=== PATIENT | female | born 1950 | race Caucasian/White ===

== ENCOUNTER 2017-07-29 04:52 | Inpatient (IN) ==
[2017-07-29] MEDS ORDERED: PANTOPRAZOLE 40 MG VIAL IV STA (05:20)
--- NOTE | 2017-07-29 05:24 | Emergency Department Note ---
Arrival - Arrival Chief Complaint: Chest Pain Stated Complaint: chest pains sob ED Nursing Triage Note: TO ER PER WC WITH C/O CHEST PAIN AND TIGHTNESS THAT BEGAN AT 0200 THIS AM. STATES PAIN IS RADIATING TO BACK AND UNDERNEATH LEFT ARM. Mode of Arrival: Wheelchair Time Seen by Provider: 07/29/17 05:19 - History of Present Illness HPI Narrative: This is a 67-year-old white female with a history of acid reflux disease, and benign tremor who was awoken at 2 AM with chest pressure, nausea, diaphoresis. She had a similar presentation in 2012 where her troponin was elevated and where she underwent a cardiac catheterization which showed no stent of the lesions. The initial EKG does not show ST segment elevation. She has ongoing chest discomfort with nausea in the emergency department. Allergies/Adverse Reactions: Allergies Allergy/AdvReac Type Severity Reaction Status Date / Time No Known Allergies Allergy Unverified 07/29/17 05:03 Review of System - Review of System Constitutional: Absent: fever, night sweats Eyes: Absent: redness, vision change Head/Ears/Nose/Throat: Absent: epistaxis Respiratory: Absent: respiratory distress, wheezing Cardiovascular: Absent: dyspnea on exertion, orthopnea Gastrointestinal: Absent: diarrhea, constipation, hematemesis Genitourinary female: Absent: dysuria, frequency, urgency Musculoskeletal: Absent: joint swelling, lower back pain, leg pain Skin: Absent: change in color, pruritus Neurological: Absent: numbness, confusion Psychiatric: Absent: anxiety, depression Endocrine: Absent: heat intolerance, polydipsia, polyuria Hematological/Lymphatic: Absent: easy bruising, lymphadenopathy Allergic/Immunologic: Absent: urticaria, itchy eyes Medical,Surgical,& Family Hx - Medical History Musculoskeletal: History of: Musculoskeletal Problems (BENIGN TREMOR) - Surgical History Cardiac Surgeries: Sugical HX of: Cardiac Catheterization - Social History Smoking Status: Never smoker Frequency of Alcohol Use: None Type of Drug Use: None Exam Vital Signs: Vital Signs Temperature 97.1 F L 07/29/17 04:55 Pulse Rate 51 L 07/29/17 04:55 Respiratory Rate 20 07/29/17 04:55 Blood Pressure 142/78 07/29/17 04:55 O2 Sat by Pulse Oximetry 99 07/29/17 04:55 - General General appearance: alert, in no apparent distress - Eye Eye exam: Present: PERRL, EOMI - ENT ENT exam: Present: normal exam, normal oropharynx - Neck Neck exam: Present: normal inspection, full ROM - Chest Chest inspection: Present: normal inspection - Respiratory Respiratory exam: Present: normal lung sounds bilaterally - Cardiovascular Cardiovascular exam: Present: regular rate, normal rhythm - Abdominal Exam Abdominal exam: Present: soft, normal bowel sounds - Extremities Exam Extremities exam: Present: normal inspection, full ROM - Back Exam Back exam: Present: normal inspection, full ROM - Neurological Exam Neurological exam: Present: alert, oriented X3 - Psychiatric Psychiatric exam: Present: normal affect, normal mood - Skin Skin exam: Present: warm, dry
[2017-07-29] MEDS ORDERED: PANTOPRAZOLE 40 MG VIAL IV ONE (05:27)
[2017-07-29 05:30] LABS: Basophils # 0.1 10*3/uL (0.0-0.2); Basophils % 0.6 % (0.0-0.8); Eosinophils # 0.2 10*3/uL (0.0-0.87); Eosinophils % 2.6 % (0.00-10.9); Hematocrit 37.3 VOL% (35.7-47.0); Hemoglobin 12.9 GM/DL (12.0-16.0); Immature Granulocytes % 0.1 %; Immature Granulocytes Absolute 0.01 #; Lymphocytes # 2.8 10*3/uL (1.4-4.0); Mean Corpuscular HGB Conc 34.6 GM/DL (32-36); Mean Corpuscular Hemoglobin 30 PG (27-34); Mean Corpuscular Volume 87.1 FL (87-102); Mean Platelet Volume 9.2 FL (9.6-12.0); Monocytes # 0.5 10*3/uL (0.11-0.8); Monocytes % 6.5 % (1.7-12.7); Neutrophils # 4.6 10*3/uL (1.4-7.4); Neutrophils % 56.2 % (38.7-73.9); Platelet Count 305 T/CUMM (130-400); Red Blood Count 4.28 MC/CUMM (3.8-5.5); Red Cell Distribution Width 13.1 % (9.3-17.3); White Blood Count 8.2 T/CUMM (4-12)
--- NOTE | 2017-07-29 05:32 | EKG Report ---
Stationary ECG Study 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
[2017-07-29 05:48] LABS: Albumin 3.9 G/DL (3.4-5.0); Bilirubin,Total 0.7 MG/DL (0.2-1.0); Calcium 10.3 MG/DL (8.5-10.1); Osmolality,Calculated 275.7 MOS/KG (273-304); Potassium 3.8 MMOL/L (3.5-5.1); Total Protein 6.8 G/DL (6.4-8.3)
[2017-07-29] MEDS ORDERED: ONDANSETRON 4 MG/2 ML VIAL IV STA (05:50)
[2017-07-29] MEDS ORDERED: ONDANSETRON 4 MG/2 ML VIAL ONE (05:50)
[2017-07-29 05:56] LABS: Troponin I Only 5.74 NG/ML (0.00-0.045)
[2017-07-29] MEDS ORDERED: MORPHINE 2 MG/1 ML SYRINGE IV STA (06:12)
[2017-07-29] MEDS ORDERED: NITROGLYCERIN 2% OINT 1 INCH/GM PACK TOP STA (06:12)
[2017-07-29] MEDS ORDERED: ENOXAPARIN 60 MG/0.6 ML SYRINGE SUBCUT STA (06:12)
[2017-07-29] MEDS ORDERED: ENOXAPARIN 60 MG/0.6 ML SYRINGE ONE (06:22)
[2017-07-29] MEDS ORDERED: NITROGLYCERIN 2% OINT 1 INCH/GM PACK TOP ONE (06:23)
[2017-07-29] MEDS ORDERED: MORPHINE 2 MG/1 ML SYRINGE ONE (06:23)
[2017-07-29] MEDS ORDERED: ONDANSETRON 4 MG/2 ML VIAL IV PRN (06:47)
[2017-07-29] MEDS ORDERED: MORPHINE 2 MG/1 ML SYRINGE IV PRN (06:47)
[2017-07-29] MEDS: SODIUM CHLORIDE 0.9% 1,000 ML IV SCH ×3 (08:24→23:45)
--- NOTE | 2017-07-29 09:35 | EKG Report ---
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
--- NOTE | 2017-07-29 09:36 | EKG Report ---
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
[2017-07-29 09:43] LABS: Risk Ratio 5.1
[2017-07-29] MEDS ORDERED: TICAGRELOR 90 MG TABLET PO ONE (10:42)
[2017-07-29 11:08] LABS: Risk Ratio 5.15; VLDL CHOLESTEROL 31.2 MG/DL
--- NOTE | 2017-07-29 11:51 | EKG Report ---
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
[2017-07-29] MEDS: ESCITALOPRAM 10 MG TABLET PO SCH (12:00)
[2017-07-29] MEDS: CARBIDOPA/LEVODOPA 25-100 MG TABLET PO SCH (12:00)
--- NOTE | 2017-07-29 12:23 | XRay Report ---
History: Chest pain Date: 07/29/2017 Study: Chest x-ray AP portable Comparison exam: October 15, 2011 The cardiac silhouette is upper normal in size. There is a moderate-sized hiatal hernia. The mediastinal contours are otherwise unremarkable. The pulmonary vasculature is not engorged. The lungs and pleural spaces are generally clear. Osseous structures are unchanged. Impression: No acute process compared to the previous study PROCEDURE INTERPRETED AT [facility] DEPARTMENT OF RADIOLOGY Final Report Signed by: Dr. Lori Guidry
--- NOTE | 2017-07-29 14:18 | Cardiology History & Physical ---
Assessment and Plan (1) Non-STEMI (non-ST elevated myocardial infarction) Status: Acute Current Visit: Yes (2) Hyperlipidemia Status: Chronic Current Visit: Yes History of Present Illness Chief complaint: Chest pain History of present illness: Job Coaching: She requests to follow-up with me The patient is a 67-year-old white female with a history of myocardial infarction approximately 5 years ago. Risk factors for coronary artery disease include hyperlipidemia and a family history. She tells me her blood work was abnormal but at that time cardiac catheterization was performed with Dr. Altamirano which did not reveal any obstructive coronary disease. She has enjoyed reasonably good health with a chronic condition of tremors since adolescence. This is usually treated with Inderal. She presented to the emergency room with chest discomfort. Yesterday was emotionally taxing for the patient as her best friend's son unexpectedly at the age of 43 while running. She had chest discomfort on and off yesterday with this distress. However, she awoke at approximately 3 AM with a severe tightness in her chest that radiated up into her neck or jaw and down into her left arm as well as her back. It was associated with diaphoresis, presyncope, nausea and vomiting. She came to the emergency room and her symptoms were relieved with nitroglycerin. Her cardiac biomarkers have been markedly positive. She is currently pain-free. She denies any antecedent change in her functional status, dyspnea on exertion, paroxysmal nocturnal dyspnea, orthopnea , lower extremity edema, presyncope. She does experience chronic reflux symptoms, but these symptoms are distinctly different from what she experienced today and are worse when she is in the recumbent position. She has no other acute complaints. Impression and plan: 1. Non-ST elevation myocardial infarction-she is currently asymptomatic. I suspect she may have Prinzmetal pathology but cannot confirm this until cardiac catheterization. She is being treated acutely with aspirin, Lovenox, Plavix, Lipitor. Her blood pressure will not allow us to continue beta-blockade at this time. I have discussed the role, risks and benefits of cardiac catheterization with the patient and she is agreeable to proceeding. We will schedule this for the morning unless she becomes more unstable. We will also get an echocardiogram for further risk stratification. 2. Hyperlipidemia-we will initiate and continue the Lipitor. She was not taking this consistently as an outpatient Home Medications Medication Instructions Recorded Confirmed Type Atorvastatin [Lipitor] 1 tablet PO DAILY 07/29/17 07/29/17 History Carbidopa/Levodopa 25-100 [Sinemet 1 tablet PO DAILY 07/29/17 07/29/17 History 25-100] Escitalopram [Lexapro] 1 tablet PO DAILY 07/29/17 07/29/17 History Lansoprazole [Prevacid] 30 mg PO DAILY 07/29/17 07/29/17 History Propranolol HCl [Propranolol ER 1 capsule PO DAILY 07/29/17 07/29/17 History Cap] Allergies Allergy/AdvReac Type Severity Reaction Status Date / Time No Known Allergies Allergy Unverified 07/29/17 05:03 12 point system: reviewed and no additional remarkable complaints except as stated Medical,Surgical,& Family Hx - Medical History Endocrine: History of: Dyslipidemia Musculoskeletal: No history of: Musculoskeletal Problems - Surgical History Cardiac Surgeries: Sugical HX of: Cardiac Catheterization Neurologic Surgeries: Patient denies: Neurologic Surgery Reproductive Surgeries: Surgical HX of;: Gynecologic Surgery (ablation) - Social History Smoking Status: Never smoker Frequency of Alcohol Use: None Type of Drug Use: None Functional capacity: independent ambulation Cardiology Physical Exam - Constitutional Vitals: Vital Signs Temp Pulse Resp BP Pulse Ox 97.8 F 65 21 113/62 95 07/29/17 11:00 07/29/17 13:00 07/29/17 13:00 07/29/17 13:00 07/29/17 13:00 Intake and Output 07/28/17 07/29/17 07/29/17 23:59 07:59 15:59 Output Total 0 / 0 Balance 0 / 0 Output: Urine 0 / 0 Other: Voiding Method Toilet # Voids 0 Weight 56.699 kg 59 kg Patient Weight 07/29/17 23:59 Weight 59 kg Exam: General appearance: normal weight, no acute distress - Head Head exam: Present: normal inspection, normocephalic, atraumatic. Absent: hematoma, laceration - Eye Eye exam: Present: EOMI. Absent: conjunctival injection, nystagmus, periorbital swelling, scleral icterus, laceration to eyelids Pupils: Present: PERRL. Absent: constricted, dilated, fixed, irregular, unequal - ENT ENT exam: Present: normal exam, normal external ear exam - Neck Neck exam: Present: normal inspection. Absent: lymphadenopathy, meningismus, tenderness, thyromegaly - Respiratory Respiratory exam: Present: clear to auscultation bilaterally. Absent: accessory muscle use, chest wall tenderness - Cardiovascular Cardiovascular exam: Present: regular rate and rhythm. Absent: carotid bruit, gallop, JVD, rubs - GI/Abdominal GI/Abdominal exam: Present: normal bowel sounds, soft. Absent: distended, firm , guarding, hernia, mass, tenderness, rebound. - Extremities Exam Extremities exam: Present: normal inspection, normal capillary refill. Absent: calf tenderness, edema - Back Exam Back exam: Present: normal inspection. Absent: muscle spasm, vertebral tenderness - Neurological Exam Neurological exam: Present: alert, oriented X3, grossly intact with resting jaw and head tremor, intention limb tremor - Psychiatric Psychiatric exam: Present: normal affect, normal mood - Skin Skin exam: Present: normal color, warm, dry, intact. Absent: cyanosis, diaphoretic, rash, urticaria Result/EKG - Labs CBC & BMP: 07/29/17 05:17 07/29/17 05:17 Lab Results: I have reviewed the past 24 hour labs Labs: Laboratory Results - last 24 hr 07/29/17 07/29/17 07/29/17 05:17 05:17 08:38 WBC 8.2 RBC 4.28 Hgb 12.9 Hct 37.3 MCV 87.1 MCH 30 MCHC 34.6 RDW 13.1 Plt Count 305 MPV 9.2 L Neut % (Auto) 56.2 Lymph % (Auto) 34.0 Chambers % (Auto) 6.5 Eos % (Auto) 2.6 Baso % (Auto) 0.6 Neut # (Auto) 4.6 Lymph # (Auto) 2.8 Chambers # (Auto) 0.5 Eos # (Auto) 0.2 Baso # (Auto) 0.1 Immature Gran % 0.1 Nucleated RBC % 0.0 Immature Gran # 0.01 Nucleated RBCs # 0.00 Immature Plt Fraction 0.0 Sodium 138 Potassium 3.8 Chloride 104 Carbon Dioxide 24 Anion Gap 13.8 BUN 12 Creatinine 0.90 GFR Calculation 60 BUN/Creatinine Ratio 13.00 Glucose 120 H Calculated Osmolality 275.7 Calcium 10.3 H Total Bilirubin 0.70 AST 40 H ALT 15 Alkaline Phosphatase 104 Troponin I 5.740 H Total Protein 6.8 Albumin 3.9 Globulin 2.9 Albumin/Globulin Ratio 1.3 Triglycerides 125 Cholesterol 260 H LDL Cholesterol 185.0 VLDL Cholesterol 25.0 HDL Cholesterol 51 Heart Disease Risk Ratio 5.10 Lipase 153.0 07/29/17 07/29/17 07/29/17 08:38 11:00 Unknown WBC RBC Hgb Hct MCV MCH MCHC RDW Plt Count MPV Neut % (Auto) Lymph % (Auto) Chambers % (Auto) Eos % (Auto) Baso % (Auto) Neut # (Auto) Lymph # (Auto) Chambers # (Auto) Eos # (Auto) Baso # (Auto) Immature Gran % Nucleated RBC % Immature Gran # Nucleated RBCs # Immature Plt Fraction Sodium Potassium Chloride Carbon Dioxide Anion Gap BUN Creatinine GFR Calculation BUN/Creatinine Ratio Glucose Calculated Osmolality Calcium Total Bilirubin AST ALT Alkaline Phosphatase Troponin I 13.500 H D 16.900 H D Total Protein Albumin Globulin Albumin/Globulin Ratio Triglycerides 156 H Cholesterol 273 H LDL Cholesterol 199.0 VLDL Cholesterol 31.2 HDL Cholesterol 53 Heart Disease Risk Ratio 5.15 Lipase - Diagnostic Findings Procedure: Chest x-ray: report reviewed by me - EKG EKG results: interpreted by me, sinus rhythm, no acute changes
[2017-07-29] MEDS ORDERED: POTASSIUM CHLORIDE RIDER 10 MEQ in PREMIX 1 EACH IV PRN (14:20)
[2017-07-29] MEDS ORDERED: MAGNESIUM SULF RIDER 2 GM in PREMIX 1 EACH IV PRN (14:20)
[2017-07-29] MEDS: PANTOPRAZOLE 40 MG TABLET PO SCH (15:06)
[2017-07-29] MEDS: NITROGLYCERIN 2% OINT 1 INCH/GM PACK TOP SCH (17:45)
[2017-07-29] MEDS ORDERED: ENOXAPARIN 60 MG/0.6 ML SYRINGE SUBCUT ONE (18:30)
--- NOTE | 2017-07-29 20:27 | ECHO Report ---
Deborah Ken Exam Date: 07/29/2017 11:05 Referring Physician: Technologist: Paz Nesbitt RDCS Age: 67 Ht (in): 62 Wt (lb): 130 Gender: F Exam Location: [facility] Echo Indications: Chest pain, unspecified, Non-ST elevation (NSTEMI) myocardial infarction BP: 120 / 65 HR: 55 Rhythm: Sinus Technical Quality: IMPRESSIONS Normal left ventricular wall thickness. Left ventricular ejection fraction is estimated at 60 %. The right atrium is mildly enlarged. Moderately enlarged left atrium in apical view. Mild mitral valve regurgitation. Mild tricuspid valve regurgitation. Tricuspid regurgitation velocities suggest a PAP of 43 mmHg. Trace pulmonary valve regurgitation. MEASUREMENTS (Male / Female) Normal Values 2D ECHO LV Diastolic Diameter PLAX 5.1 cm 4.2 - 5.9 / 3.9 - 5.3 cm LV Systolic Diameter PLAX 3.6 cm LV Fractional Shortening PLAX 30.3 % IVS Diastolic Thickness 0.8 cm 0.6 - 1.0 / 0.6 - 0.9 cm LVPW Diastolic Thickness 0.9 cm 0.6 - 1.0 / 0.6 - 0.9 cm RV Internal Dim ED PLAX 2.7 cm Aortic Root Diameter 2.7 cm LA Systolic Diameter LX 3.5 cm 3.0 - 4.0 / 2.7 - 3.8 cm DOPPLER TR Peak Velocity 288.0 cm/s TR Peak Gradient 33.2 mmHg FINDINGS Left Ventricle Normal left ventricular cavity size. Normal left ventricular wall thickness. Left ventricular ejection fraction is estimated at 60 %. Right Ventricle The right ventricle is normal in size and function. Right Atrium The right atrium is mildly enlarged. Left Atrium Modderately enlarged left atrium in apical view. Mitral Valve Morphologically normal mitral valve. Mild mitral valve regurgitation. Aortic Valve Morphologically normal aortic valve without significant sclerosis or stenosis. There is no aortic regurgitation. Tricuspid Valve Morphologically normal tricuspid valve. Mild tricuspid valve regurgitation. Tricuspid regurgitation velocities suggest a PAP of 43 mmHg. Pulmonic Valve Morphologically normal pulmonic valve. Trace pulmonary valve regurgitation. Pericardium Normal pericardium without effusion. Aorta Normal ascending aorta dimension. Kenn Kim MD (Electronically Signed) Final Date: 29 July 2017 20:26
[2017-07-29] MEDS: TICAGRELOR 90 MG TABLET PO SCH (20:43)
[2017-07-30] MEDS: NITROGLYCERIN 2% OINT 1 INCH/GM PACK TOP SCH ×2 (02:28→06:22)
[2017-07-30 05:35] LABS: Basophils % 0.6 % (0.0-0.8); Eosinophils # 0.1 10*3/uL (0.0-0.87); Eosinophils % 1.7 % (0.00-10.9); Hemoglobin 11.2 GM/DL (12.0-16.0); Immature Granulocytes % 0.2 %; Immature Granulocytes Absolute 0.01 #; Lymphocytes # 2.1 10*3/uL (1.4-4.0); Mean Corpuscular HGB Conc 33.9 GM/DL (32-36); Mean Corpuscular Hemoglobin 30 PG (27-34); Mean Corpuscular Volume 89.7 FL (87-102); Mean Platelet Volume 9.9 FL (9.6-12.0); Monocytes # 0.6 10*3/uL (0.11-0.8); Neutrophils # 3.5 10*3/uL (1.4-7.4); Neutrophils % 54.5 % (38.7-73.9); Platelet Count 241 T/CUMM (130-400); Red Blood Count 3.68 MC/CUMM (3.8-5.5); Red Cell Distribution Width 13.2 % (9.3-17.3); White Blood Count 6.4 T/CUMM (4-12)
[2017-07-30 06:18] LABS: Calcium 9.2 MG/DL (8.5-10.1); Osmolality,Calculated 282.1 MOS/KG (273-304)
[2017-07-30] MEDS ORDERED: DIAZEPAM 5 MG TABLET PO ONE (07:00)
[2017-07-30] MEDS ORDERED: diphenhydrAMINE CAP 25 MG CAPSULE PO ONE (07:00)
[2017-07-30] MEDS ORDERED: LIDOCAINE 1% 20 ML VIAL ONE (07:15)
[2017-07-30] MEDS ORDERED: HEPARIN/NACL 0.9% 2 UNITS/ML 1,000 ML IV ONE (07:15)
--- NOTE | 2017-07-30 08:07 | EKG Report ---
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
--- NOTE | 2017-07-30 08:10 | EKG Report ---
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
[2017-07-30] MEDS: TICAGRELOR 90 MG TABLET PO SCH ×2 (08:15→22:02)
[2017-07-30] MEDS ORDERED: fentaNYL 100 MCG/2 ML VIAL ONE (08:28)
[2017-07-30] MEDS ORDERED: MIDAZOLAM 2 MG/2 ML VIAL ONE (08:28)
[2017-07-30] MEDS ORDERED: ASPIRIN CHEW 81 MG TABLET PO ONE (08:31)
[2017-07-30] MEDS: SODIUM CHLORIDE 0.9% 1,000 ML IV SCH ×2 (08:37→16:06)
[2017-07-30] MEDS ORDERED: ACETAMINOPHEN/CODEINE 300-30 MG TABLET PO PRN (09:15)
[2017-07-30] MEDS ORDERED: NITROGLYCERIN SL 0.4 MG TABLET SL PRN (09:15)
--- NOTE | 2017-07-30 09:35 | Cardiology Operative Report ---
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 Selective left and right coronary angiography. 2. Left heart catheterization with left ventriculogram. 3. Right iliac angiography to rule out vascular complications. 4. Application of Mynx hemostasis device to the right femoral arteriotomy site. Impression: 1. Angiographically normal coronary arteries. 2. Right dominant coronary arteries. 3. Ejection fraction 55 %. 4. Angiographically normal right iliac artery without evidence of vascular complications. 5. 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 6. 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 Plan: 1. Medical management nodule 5 below okay okay 1: 5 the cause for the 0 100 11 AM just about every me in is one that I came in 3 did not come in before because they had bleeding disorder at first so still would get any Sunday 3 weeks home and evaluate my family to get that baseball home about 1230 five- point 5 in the morning to get into bed, stomach for a couple hours and then apparently went to bed and call but then there is like my life right like the dog wakes present assuming I woke up this morning and I said 5 and is getting up quite yet in my normal at 6. Equipment: Diagnostic 6 Slovak JL4, JR3.5, pigtail catheters. Hemodynamics: Aortic pressure 127/64 mmHg, left ventricular pressure 122/32 mmHg, LVEDP 15 mmHg Sedation: Versed 2 mg, fentanyl 50 mcg Procedure: After informed consent was obtained the patient was prepped and draped in sterile fashion. The right groin was infiltrated with 1% lidocaine and the right femoral artery was accessed via modified Seldinger technique using a micropuncture needle and a 6 Slovak femoral arterial sheath was placed. All catheter exchanges were performed over a guidewire under fluoroscopic guidance. Diagnostic 6 Slovak JL4 catheter was advanced to the left main coronary artery and multiple cineangiograms were performed in varying degrees of obliquity and angulation. The JR4 catheter was then advanced to the right coronary cusp but did not readily engage the right coronary artery. This was exchanged for a JR 3.5 catheter, which cannulated the right coronary artery successfully, and multiple scintigrams were then performed again in varying degrees of obliquity and angulation. Thereafter a pigtail catheter was advanced into the left ventricle where hemodynamics were obtained followed by left ventriculogram. At conclusion of the procedure right iliac angiography was performed to rule out vascular complications. A Mynx hemostasis device was unsuccessfully applied to the right femoral arteriotomy site. Findings: 1. The left main artery is angiographically normal. 2. The left anterior descending artery extends to the apex and wraps around. It is angiographically normal. 3. There is an intermediate ramus branch that is of small to moderate caliber, angiographically normal. 4. The circumflex artery is a nondominant system that is angiographically normal. The first obtuse marginal artery is very high and could be considered a second intermediate ramus vessel. 5. The right coronary artery is angiographically normal, and dominant. 6. Ejection fraction is 55 % with aneurysmal formation and akinesis of the basal to mid inferior wall. 7. No significant mitral regurgitation. 8. No significant aortic stenosis. 9. The right iliac artery is angiographically normal without evidence of vascular complications. Contrast use: Visipaque 82 cc Fluoro time: 4.0 minutes Complications: none Specimens removed: none Devices implanted: Mynx Anesthesia: moderate conscious sedation Surgeon / Physician: Rhonda Briceno Air Turning Machine Feeder: none (Angel Ruvalcaba) Estimated blood loss: minimal Specimens: none sent Condition: stable Disposition: ICU/CCU
[2017-07-30] MEDS: PANTOPRAZOLE 40 MG TABLET PO SCH (11:35)
[2017-07-30] MEDS: ATORVASTATIN 40 MG TABLET PO SCH (11:35)
[2017-07-30] MEDS: ESCITALOPRAM 10 MG TABLET PO SCH (11:36)
[2017-07-30] MEDS: ISOSORBIDE MONONITRATE 30 MG TABLET PO SCH (11:36)
[2017-07-30] MEDS: CARBIDOPA/LEVODOPA 25-100 MG TABLET PO SCH (11:36)
[2017-07-30] MEDS: PROPRANOLOL LA 60 MG CAPSULE PO SCH (11:36)
[2017-07-30] MEDS: ACETAMINOPHEN 325 MG TABLET PO PRN (18:47)
[2017-07-30] MEDS ORDERED: CARBIDOPA/LEVODOPA 25-100 MG TABLET PO SCH (21:00)
[2017-07-31] MEDS ORDERED: ENOXAPARIN 40 MG/0.4 ML SYRINGE SUBCUT SCH (03:17)
[2017-07-31 04:51] LABS: Basophils % 0.4 % (0.0-0.8); Eosinophils # 0.1 10*3/uL (0.0-0.87); Eosinophils % 1.5 % (0.00-10.9); Hemoglobin 11.2 GM/DL (12.0-16.0); Immature Granulocytes % 0.3 %; Immature Granulocytes Absolute 0.02 #; Lymphocytes # 1.7 10*3/uL (1.4-4.0); Lymphocytes % 23.3 % (21.3-54.2); Mean Corpuscular HGB Conc 33.9 GM/DL (32-36); Mean Corpuscular Hemoglobin 30 PG (27-34); Mean Corpuscular Volume 88.7 FL (87-102); Mean Platelet Volume 9.5 FL (9.6-12.0); Monocytes # 0.7 10*3/uL (0.11-0.8); Monocytes % 9.1 % (1.7-12.7); Neutrophils # 4.8 10*3/uL (1.4-7.4); Neutrophils % 65.4 % (38.7-73.9); Platelet Count 239 T/CUMM (130-400); Red Blood Count 3.72 MC/CUMM (3.8-5.5); Red Cell Distribution Width 13.1 % (9.3-17.3); White Blood Count 7.3 T/CUMM (4-12)
[2017-07-31 05:23] LABS: Calcium 9.5 MG/DL (8.5-10.1); Osmolality,Calculated 278.3 MOS/KG (273-304); Potassium 4.3 MMOL/L (3.5-5.1)
[2017-07-31] MEDS ORDERED: PNEUMOCOCCAL VACCINE (13 VALENT) 0.5 ML SYRINGE IM ONE (08:00)
[2017-07-31] MEDS: ATORVASTATIN 40 MG TABLET PO SCH (08:38)
[2017-07-31] MEDS: TICAGRELOR 90 MG TABLET PO SCH (08:38)
[2017-07-31] MEDS: PANTOPRAZOLE 40 MG TABLET PO SCH (08:38)
[2017-07-31] MEDS: ISOSORBIDE MONONITRATE 30 MG TABLET PO SCH (08:39)
[2017-07-31] MEDS: ESCITALOPRAM 10 MG TABLET PO SCH (08:39)
[2017-07-31] MEDS: PROPRANOLOL LA 60 MG CAPSULE PO SCH (08:39)
[2017-07-31] MEDS ORDERED: ASPIRIN EC 81 MG TABLET PO SCH (09:00)
--- NOTE | 2017-07-31 10:05 | Discharge Summary ---
Hospital Course - Hospital Course Hospital Course: WELDING EQUIPMENT REPAIRER: DR. BRICENO PRIMARY CARE PROVIDER: DR. ZELDA VELAZQUEZ Ms. Ken, 67WF, admitted, 2017 with NSTEMI. She was taken urgently to the cardiac catheterization lab where Dr. Briceno performed heart cath with the following impression noted: Impression: 1. Angiographically normal coronary arteries. 2. Right dominant coronary arteries. 3. Ejection fraction 55 %. 4. Angiographically normal right iliac artery without evidence of vascular complications. 5. 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 6. 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 Plan: Patient will be for Prinzmetal component versus thrombotic event. 2016: Overnight, patient has done well. She denies chest pain, heaviness or tightness. She did have an episode of mild nausea last night which concerned her however this resolved and occurred after she had eaten and at rest. She is also had mild epistaxis this morning however she received aspirin, Brilinta and Lovenox this morning. She also acknowledges that in the past, when using oxygen via nasal cannula, she has experienced mild epistaxis as well. I did offer the patient an ENT consult prior to discharge today but she like to be discharged home. I suspect that this will resolve on its own. 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 Cárdenas. 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 Right groin is soft, free of hematoma or bruit. Labs are stable as well. Patient has not seen a neurologist in many years. She is agreeable for referral and I will make a referral to Dr. Chalino Diop at [place] to evaluate and treat her tremors. Patient has been counseled by cardiac rehab. Having felt she is met maximal medical therapy, patient is being discharged home in stable condition. Cardiac discharge medications include the following: Aspirin 81 mg orally daily Brilinta 90 mg orally twice daily Cardizem CD 120 mg orally daily Isosorbide mononitrate 15 mg orally each evening Tylenol 650 mg orally each evening 30 minutes prior to taking isosorbide mononitrate 1 week (headache) Atorvastatin 40 mg orally each evening Propanolol LA 60 mg orally daily (tremors) Patient's blood pressure will not allow for introduction of an JUNIOR/ARB as we favor introduction of a non-dihydropyridine calcium channel jimenez for treatment of Prinzmetal angina An STA AL the patient is a 67-year-old white female with a history of myocardial infarction approximately 5 years ago. Risk factors for coronary artery disease include hyperlipidemia and a family history. She tells me her blood work was abnormal but at that time cardiac catheterization was performed with Dr. Altamirano which did not reveal any obstructive coronary disease. She has enjoyed reasonably good health with a chronic condition of tremors since adolescence. This is usually treated with Inderal. She presented to the emergency room with chest discomfort. Yesterday was emotionally taxing for the patient as her best friend's son unexpectedly at the age of 43 while running. She had chest discomfort on and off yesterday with this distress. However, she awoke at approximately 3 AM with a severe tightness in her chest that radiated up into her neck or jaw and down into her left arm as well as her back. It was associated with diaphoresis, presyncope, nausea and vomiting. She came to the emergency room and her symptoms were relieved with nitroglycerin. Her cardiac biomarkers have been markedly positive. She is currently pain-free. She denies any antecedent change in her functional status, dyspnea on exertion, paroxysmal nocturnal dyspnea, orthopnea , lower extremity edema, presyncope. She does experience chronic reflux symptoms, but these symptoms are distinctly different from what she experienced today and are worse when she is in the recumbent position. She has no other acute complaints. Impression and plan: 1. Non-ST elevation myocardial infarction-she is currently asymptomatic. I suspect she may have Prinzmetal pathology but cannot confirm this until cardiac catheterization. She is being treated acutely with aspirin, Lovenox, Plavix, Lipitor. Her blood pressure will not allow us to continue beta-blockade at this time. I have discussed the role, risks and benefits of cardiac catheterization with the patient and she is agreeable to proceeding. We will schedule this for the morning unless she becomes more unstable. We will also get an echocardiogram for further risk stratification. 2. Hyperlipidemia-we will initiate and continue the Lipitor. She was not taking this consistently as an outpatient - Time spent with patient Time with patient DS: Greater than 30 minutes Diagnosis - Discharge Diagnosis (1) Hypertension Status: Chronic (2) Epistaxis Status: Resolved (3) Tremors of nervous system Status: Chronic (4) Prinzmetal angina Status: Resolved (5) Non-STEMI (non-ST elevated myocardial infarction) Status: Resolved (6) Hyperlipidemia Status: Chronic Specialty Discharge - Follow Up or Referrals Follow up with: Rhonda Briceno MD [Physician] - (1-2 weeks. BMP, Mg, CBC, EKG) Doe Diop [REFERRING DOCTOR/PRACTITIONER] - (1 month. RE: tremors) Discharge Plan - Discharge Data Disposition: Disch To Home/Self Care Condition at Discharge: Stable Discharge Diet: heart healthy Activity: other (Post cath expectations) Hygiene: other (Post cath expectations) Weight Bearing at Discharge: other (Post cath expectations) Driving: other (Post cath expectations) Contact your physician if you experience:: fever over 101, Difficulty voiding, Redness or swelling, Nausea/Vomiting, Shortness of breath, Bleeding, pain uncontrolled by pain medications - Discharge Medications New Aspirin EC Tab 81 mg PO DAILY tablet Atorvastatin [Lipitor] 40 mg PO BEDTIME tablet Diltiazem Cd Cap [Cardizem CD] 120 mg PO DAILY #30 capsule Isosorbide Mononitrate [Imdur] 15 mg PO PC SUPPER #30 tablet Nitroglycerin Sl Tab [Nitrostat] 0.4 mg SL Q5M PRN #1 bottle PRN Reason: Chest Pain Ticagrelor [Brilinta] 90 mg PO BID #60 tablet Continue Propranolol HCl [Propranolol ER Cap] 1 capsule PO DAILY Carbidopa/Levodopa 25-100 [Sinemet 25-100] 1 tablet PO DAILY Escitalopram [Lexapro] 1 tablet PO DAILY Lansoprazole [Prevacid] 30 mg PO DAILY Discontinued Atorvastatin [Lipitor] 1 tablet PO DAILY - Follow Up or Referral - Forms/Instructions Instructions: Angina (GEN), Myocardial Infarction (GEN), Left Heart Catheterization (DC), Heart Healthy Diet (GEN), Coronary Intravascular Stent Placement (DC) Additional Discharge Instructions: Please give Brilinta card prior to discharge. Please instruct patient she may take Tylenol 650 mg orally 30 minutes each evening prior to taking isosorbide mononitrate for 1 week. This will prevent headache. Exam - Constitutional Vitals: Period Temp Pulse Resp BP Sys/Rojas Pulse Ox Last 24 Hr 97.5 F-98.6 F 55-76 16-20 110-159/58-95 91-96 Exam: General: [Appears well with no apparent distress.] [Pleasant and cooperative. ] [Appears comfortable.] HEENT: [PERRL, normocephalic, atraumatic. Mucous membranes moist. No jaundice noted. Conjunctiva moist and clear, sclerae anicteric] Neck: No JVD/HJR, no thyromegaly or lymphadenopathy noted. No carotid bruit appreciated Cardiac: [Regular rate and rhythm.] [No murmur rub or gallop.] Lungs: [Clear to auscultation without accessory muscle use to assist the respiratory pattern.] Not requiring oxygen Abdomen: Soft, bowel sounds normoactive. Nontender and nondistended. No abdominal bruit or thrill noted. No masses noted. Musculoskeletal: No fluid collection. Decreased range of motion is noted. Extremities: Right groin soft, free of hematoma or bruit. No clubbing, cyanosis noted. [ No edema noted.] Upper extremity pulses 2+. Lower extremity pulses 2+. Capillary refill less than 3 seconds. Skin: No unusual lesions or rashes. No skin breakdown appreciated. Neuro: Awake, alert and oriented 3. Moves all extremities well without hemiparesis or paralysis. Essential tremor appreciated Discharge Results Labs on day of discharge: Labs from last 24 hours 07/31/17 07/31/17 04:35 04:35 WBC 7.3 RBC 3.72 L Hgb 11.2 L Hct 33.0 L MCV 88.7 MCH 30 MCHC 33.9 RDW 13.1 Plt Count 239 MPV 9.5 L Neut % (Auto) 65.4 Lymph % (Auto) 23.3 Dyer % (Auto) 9.1 Eos % (Auto) 1.5 Baso % (Auto) 0.4 Neut # (Auto) 4.8 Lymph # (Auto) 1.7 Dyer # (Auto) 0.7 Eos # (Auto) 0.1 Baso # (Auto) 0.0 Immature Gran % 0.3 Nucleated RBC % 0.0 Immature Gran # 0.02 Nucleated RBCs # 0.00 Immature Plt Fraction 0.0 Sodium 141 Potassium 4.3 Chloride 108 H Carbon Dioxide 26 Anion Gap 11.3 BUN 11 Creatinine 0.80 GFR Calculation 71 BUN/Creatinine Ratio 13.00 Glucose 87 Calculated Osmolality 278.3 Calcium 9.5 - Imaging and Cardiology Cardiology Procedure: report reviewed by me Procedure: Chest x-ray: report reviewed by me DS: Provider Date of admission: 07/29/17 06:46 Primary care physician: Zelda Velazquez DO Attending physician on admission: Rhonda Briceno, Consults: 07/30/17 06:29 Consult to Cardiac Rehabilitation [CONS] Routine Reason for Cardiac Rehabilitation: Other Consult Comment: NSTEMI report 07/30/17 09:16 Consult to Cardiac Rehabilitation [CONS] Routine Reason for Cardiac Rehabilitation: Risk Factor Modification Other Consult Comment: Evaluate and recommend Discharging clinician: Angy Davidson NP Expected date of discharge: 07/31/17
[2017-07-31] MEDS: ACETAMINOPHEN 325 MG TABLET PO PRN (11:46)
[2017-07-31 13:55] VITALS: BP 147/78
[2017-07-31] MEDS ORDERED: ISOSORBIDE MONONITRATE 30 MG TABLET PO SCH (18:00)
[2017-07-31] MEDS ORDERED: ATORVASTATIN 40 MG TABLET PO SCH (21:00)
[2017-08-01] MEDS ORDERED: DILTIAZEM CD 120 MG CAPSULE PO SCH (09:00)
== END 2017-07-31 15:02 | disposition home or self-care (01) | DRG 282 ==
LOC: N.ED 04:52 → N.EDINP 06:46 → N.CC 07:18 → N.TELEN 07-30 09:53
PROVIDERS: ADMIT Internal Medicine Cardiovascular Disease; ATTEND Internal Medicine Cardiovascular Disease
PROC: CLCCHCL (ICD-10-PCS; 2017-07-30 10:15)